=== PATIENT | female | born 1995 | race Caucasian/White ===

== ENCOUNTER → 2017-04-28 | Outpatient (REF) | payer BC ==
[~2017-04-28] MED LIST: MOTR200T44 PO; NORCOTAB PO; PREN27TA3 PO; PRENTAB40 PO; TYLE325T5 PO
== END ==
LOC: M WUC 07:28
PROVIDERS: ATTEND Physician Assistant
DX: J03.90 Acute tonsillitis, unspecified (principal)

== ENCOUNTER → 2018-02-06 | Outpatient (REF) | payer BC | LOC: M SFHCLERA 14:17 | DX: M53.3 Sacrococcygeal disorders, not elsewhere classified (principal) | CPT/HCPCS: 87086 ==

== ENCOUNTER → 2018-09-13 | Outpatient (REF) | payer BC ==
[2018-09-13 19:57] LABS: CHLAMYDIA DNA AMPLIFICATION NEGATIVE (NEGATIVE); GC DNA AMPLIFICATION NEGATIVE (NEGATIVE)
== END ==
LOC: M LAB REF 17:07
PROVIDERS: ATTEND Obstetrics & Gynecology
DX: Z12.4 Encounter for screening for malignant neoplasm of cervix (principal); Z11.3 Encounter for screening for infections with a predominantly sexual mode of transmission
CPT/HCPCS: 87661; G0123

== ENCOUNTER → 2018-09-30 | Outpatient (REF) | payer BC ==
[~2018-09-30] MED LIST changes: +HYDR-3715 PO; -NORCOTAB PO
== END ==
LOC: M SFHCLERA 11:45
PROVIDERS: ATTEND Nurse Practitioner Family
DX: R53.81 Other malaise (principal)

== ENCOUNTER → 2018-11-21 | Outpatient (CLI) | payer BC ==
[2018-11-21 13:25] LABS: BASO % 0.2 % (0.0-1.0); EOS # 0.1 10^3/uL (0.0-0.50); EOS % 0.9 % (0.0-3.0); HEMATOCRIT 41.2 % (36.0-47.0); LYMPH # 1.9 10^3/uL (1.5-6.5); LYMPH % 18.7 % (24.0-44.0); MEAN CORPUSCULAR HEMOGLOBIN 32.6 pg (27.0-33.0); MEAN CORPUSCULAR VOLUME 95.8 fl (80.0-96.0); MONO % 9.7 % (0.0-5.0); NEUTROPHILS # 6.9 10^3/uL (1.8-7.7); NEUTROPHILS % 70.2 % (36.0-66.0); PLATELET COUNT, AUTOMATED 302 10^3/uL (150-450); WHITE BLOOD COUNT 9.9 10^3/uL (4.0-10.0)
[2018-11-21 14:59] LABS: CHLAMYDIA DNA AMPLIFICATION NEGATIVE (NEGATIVE); GC DNA AMPLIFICATION NEGATIVE (NEGATIVE)
[2018-11-22 11:19] LABS: HIV 1&2 SCREEN CENTAUR NEGATIVE (NEGATIVE); RUBELLA IgG QUALITATIVE IMMUNE (IMMUNE)
== END ==
LOC: M WUC 09:15
PROVIDERS: ATTEND Obstetrics & Gynecology
DX: Z34.81 Encounter for supervision of other normal pregnancy, first trimester (principal); Z3A.00 Weeks of gestation of pregnancy not specified

== ENCOUNTER → 2018-12-11 | Outpatient (REF) | payer BC | LOC: M LAB REF 12:55 | PROVIDERS: ATTEND Obstetrics & Gynecology | DX: Z34.81 Encounter for supervision of other normal pregnancy, first trimester (principal) ==

== ENCOUNTER → 2019-01-31 | Outpatient (CLI) | payer BC ==
--- NOTE | 2019-01-31 14:56 | REP ---
OBSTETRIC SONOGRAPHY: HISTORY: Supervision of for anatomy. FINDINGS: Scanning through the gravid uterus demonstrates a viable single intrauterine gestation in a cephalic lie. motion is observed and heart rate is recorded at 147 beats per minute. An anterior grade 1 placenta is seen without evidence of previa or abruption. Amniotic fluid is subjectively normal. Closed cervical length is measured transabdominally at 3.3 cm. No extrauterine abnormality observed. The following anatomic structures are less than optimally seen today due to position: Face and profile, lungs, four-chamber heart and outflow tract views. The following additional anatomic structures are identified and felt to be unremarkable: cranium, choroid plexus, cavum, cerebellum and posterior fossa, diaphragm, left-sided stomach, abdominal wall cord insertion, three-vessel cord, kidneys and bladder, spine, upper and lower extremities. Biometry Chart: BPD 4.5 cm = 19 weeks 4 days HC 16.7 cm = 19 weeks 3 days AC 14.0 cm = 19 weeks 3 days FL 3.1 cm = 19 weeks 4 days HL 2.9 cm = 19 weeks 3 days HC/AC ratio normal 1.19. Cephalic index normal 0.74. Estimated weight 294 grams, 0 pounds 10 ounces, 49th percentile for 19 weeks 3 days. IMPRESSION: Viable single intrauterine gestation at 19 weeks 3 days by today's composite sonographic criteria. ALBIN by today's sonography June 24, 2019. No anomaly is seen. anatomic survey is incomplete regarding face, lungs, and heart. Electronically Signed by Jose Raul Tate MD 01/31/2019 03:24 P
== END ==
LOC: M RAD 12:25
PROVIDERS: ATTEND Obstetrics & Gynecology
DX: Z34.82 Encounter for supervision of other normal pregnancy, second trimester (principal)

== ENCOUNTER → 2019-02-18 | Outpatient (CLI) | payer BC ==
--- NOTE | 2019-02-18 11:34 | REP ---
OB ULTRASOUND: Real-time sonographic evaluation of the gravid uterus performed. There is a single living intrauterine gestation with an estimated gestational 22 weeks 0 days, EDC 06/24/2019. Today's measurements indicate appropriate growth. Biometry and Growth: BPD 49 mm = 28 weeks 6 days, 19th percentile HC 193 mm = 21 weeks 4 days, 37th percentile AC 166 mm = 21 weeks 4 days, 42nd percentile FL 39 mm = 22 weeks 3 days, 59th percentile HC/AC ratio 1.17 within normal range. Estimated weight 458 grams, 42nd percentile. SEEN/GROSSLY UNREMARKABLE Lateral ventricles Yes Posterior fossa Yes Upper lip Yes Four-chamber heart Yes LVOT Yes RVOT Yes Stomach Yes Cord insertion Yes Three vessel cord Yes Kidneys No Bladder Yes Spine No Cervical length: Closed and measures 3.4 cm in length. heart rate: 153 beats per minute. position: Vertex. Placenta: Anterior and grade 1 with previa or abruption. Amniotic fluid: Within normal limits. Electronically Signed by Geovanny Dickey MD 02/18/2019 11:44 A
== END ==
LOC: M RAD 10:34
PROVIDERS: ATTEND Obstetrics & Gynecology
DX: Z36.9 Encounter for antenatal screening, unspecified (principal); Z3A.22 22 weeks gestation of pregnancy

== ENCOUNTER → 2019-03-17 | Outpatient (CLI) | payer BC ==
--- NOTE | 2019-03-17 14:44 | REP ---
Obstetric ultrasound for anatomy: There is a single intrauterine gestation in a transverse lie, the head is to the maternal right. There is motion and cardiac activity. The heart rate is 176 beats minute. The placenta is anterior. There is no previa or abruptio. The placenta is grade zero. The amniotic fluid volume subjectively is normal. The cervix measures 6.6 cm length. Gestational age by today's ultrasound is 26 weeks 3 days/ALBIN 06/20/2019. Gestational age by the first ultrasound is 25 weeks 6 days/ALBIN 06/24/2019. Gestational age by LMP is 25 weeks 6 days/ALBIN 06/24/2019. weight is 883 grams/1 pound, 15 ounces. This is the 46th percentile for 25 weeks 6 days. The following anatomic structures are identified and are unremarkable: Cranium, choroid plexus, cavum septum pellucidum, cerebellum, facial profile, upper lip, face, lungs, four-chamber heart, cardiac right and left ventricular outflow tracts, diaphragm, stomach, cord insertion, three-vessel cord, bladder, and upper lower extremities. Suboptimally demonstrated because of position is the spine. A followup study dedicated to the spine might be considered. Electronically Signed by Geovanny Roa MD 03/17/2019 02:35 P
== END ==
LOC: M RAD 12:01
PROVIDERS: ATTEND Obstetrics & Gynecology
DX: Z34.82 Encounter for supervision of other normal pregnancy, second trimester (principal); Z3A.36 36 weeks gestation of pregnancy

== ENCOUNTER → 2019-03-18 | Outpatient (CLI) | payer BC ==
[2019-03-18 09:05] LABS: HEMATOCRIT 35.9 % (36.0-47.0); HEMOGLOBIN 12.1 g/dl (12.0-15.5); MEAN CORPUSCULAR HEMOGLOBIN 32.8 pg (27.0-33.0); MEAN CORPUSCULAR HGB CONC 33.7 g/dl (32.0-36.5); MEAN CORPUSCULAR VOLUME 97.3 fl (80.0-96.0); PLATELET COUNT, AUTOMATED 258 10^3/uL (150-450); RED BLOOD COUNT 3.69 10^6/uL (4.00-5.40)
== END ==
LOC: M LAB 07:56
PROVIDERS: ATTEND Obstetrics & Gynecology
DX: Z34.82 Encounter for supervision of other normal pregnancy, second trimester (principal)

== ENCOUNTER → 2019-05-28 | Outpatient (REF) | payer BC | LOC: M SFHCWAGY 17:32 | PROVIDERS: ATTEND Obstetrics & Gynecology | DX: Z34.80 Encounter for supervision of other normal pregnancy, unspecified trimester (principal) ==

== ENCOUNTER 2019-06-16 11:08 | Inpatient (IN) | payer BC ==
[2019-06-16] VITALS (16 sets, daily range): BP systolic 113–147; BP diastolic 62–95
[~2019-06-16] VITALS: Ht 154.9 cm; Wt 98.0 kg
[2019-06-16] MEDS ORDERED: TUMS500C PO (11:38)
[2019-06-16] MEDS ORDERED: ACET1TAB55 PO (11:38)
[2019-06-16] MEDS ORDERED: CHILCHW10 PO (11:38)
[2019-06-16 12:47] LABS: HEMATOCRIT 32.9 % (36.0-47.0); HEMOGLOBIN 10.7 g/dl (12.0-15.5); MEAN CORPUSCULAR HEMOGLOBIN 30.8 pg (27.0-33.0); MEAN CORPUSCULAR HGB CONC 32.5 g/dl (32.0-36.5); MEAN CORPUSCULAR VOLUME 94.8 fl (80.0-96.0); PLATELET COUNT, AUTOMATED 226 10^3/uL (150-450); RED BLOOD COUNT 3.47 10^6/uL (4.00-5.40)
[2019-06-16 13:19] LABS: ALT/SGPT 10 U/L (12-78); BILIRUBIN,TOTAL 0.2 MG/DL (0.2-1.0); CREATININE FOR GFR 0.58 MG/DL (0.55-1.30); GLOMERULAR FILTRATION RATE > 60.0 (>60); LDH LACTATE DEHYDROGENASE 240 U/L (84-246); URIC ACID 4.3 MG/DL (2.6-6.0)
[2019-06-16] MEDS ORDERED: PENICILLIN G POTASSIUM IV 5 MU in D5W MINI-BAG PLUS 100 ML IV STA (13:47)
[2019-06-16] MEDS ORDERED: miSOPROStol 50 MCG 1/2 TAB (S0191) PO ONE (14:00)
--- NOTE | 2019-06-16 14:33 | HPEPDOC ---
Obstetrical History & Physical General Date of Admission Jun 16, 2019 at 11:08 Primary Care Physician: LACY PASCUAL CNM History of Present Illness Patient is a 23-year-old female who is a at 38.6 weeks gestation with an ALBIN of 06/24/19 based off of her LMP and consistent with her first trimester ultrasound. She initiated care in her first trimester. Her has been uncomplicated up until this point. She presented to a routine OB appointment today and was found to have a severe range pressure with a slight headache. Patient reports her headache is no longer occurring. She was sent over to L&D by Dr. Riley for IOL due to severe range BP and symptoms of headache. She denies contractions, leaking of fluid, or vaginal bleeding. She reports active movement. Chief Complaint: Gestational Hypertension Information Provided By: Patient Age: 23 : 4 Term: 2 Pre-term: 0 Abortions: 1 Livin Care Care: Good Care Dating Final EDC: Jun 24, 2019 Final EDC by: LMP EGA at Admission: 38.6 Antepartum Course Diagnos(e)s Gestational hypertension Height (inches): 61 Pre- weight (lbs.): 187 Admission Weight (lbs.): 215 Change in Weight (lbs.): 28 Past Medical History Past Obstetrical History #1: Gestation: 38 Type of Delivery: Spontaneous Vaginal Del. (November 2013) Sex of Infant: Male (6 lbs 3 oz) Complications: No Past Obstetrical History #2: Past Obstetrical History: Multigravida Gestation: 39.2 Type of Delivery: Spontaneous Vaginal Del. 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 Past Medical History Medical History born with hip dysplasia Surgical History: Gallbladder Family History Significant Family History: Diabetes, Hypertension Social History Marital Status: Family situation: Spouse/partner home * Smoker: non-smoker Alcohol: Denies Drugs: denies Imunizations Influenza Status: current Allergies Coded Allergies: No Known Drug Allergies (Verified Allergy, Unknown, 06/16/19) Medications Scheduled Calcium Carbonate (Tums) 200 Mg Tab.chew, 1 TAB PO QHS Pedi Multivit No.19/Folic Acid (Children's Multi-Vit Gummies) 200 Mcg Tab.chew, 2 CHW PO DAILY Scheduled PRN Acetaminophen (Acetaminophen) 325 Mg Tablet, 1-2 TABS PO Q4-6HP PRN for pain or fever Physical Examination Physical Examination GENERAL: Alert and oriented times three. BREAST: . ABDOMEN: Gravid and non-tender to touch. FETUS: Is vertex (VTX) by sterile vaginal examination (SVE), fetus is vertex (VTX) by Andrey. HEART RATE: Regular rate and rhythm. LUNGS: Clear to auscultation (CTA). EXTREMITIES: No edema. No clonus. Deep tendon reflexes (DTRs) + 1. Vital Signs/I&O Vital Signs Date Time Temp Pulse Resp B/P (MAP) Pulse Ox O2 Delivery O2 Flow Rate FiO2 06/16/19 13:01 81 20 113/62 (79) 06/16/19 11:31 97.6 98 Room Air Laboratory Data 24H LABS Laboratory Tests 2 06/16/19 11:27: Serology Scanned Report Hepatitis B Testing 06/16/19 12:36: Nucleated Red Blood Cells % (auto) 0.0, Glomerular Filtration Rate > 60.0, Uric Acid 4.3, Total Bilirubin 0.2, Aspartate Amino Transf (AST/SGOT) 23, Alanine Aminotransferase (ALT/SGPT) 10L, Lactate Dehydrogenase 240, Syphilis Serology NONREACTIVE CBC/BMP Laboratory Tests 06/16/19 12:36 Urine Culture: No Growth Pertinent Laboratoy Data Blood Type: O+ RBC Antibody Screen: Negative HIV: Negative Hepatitis B: Negative Hepatitis C: Negative Rapid Plasma Reagin: Nonreactive Rubella: Immune Chlamydia/Gonorrhea: Negative Group B Streptococcus: Positive Diag/Inter Therapy Normal 3 hour GTT Anatomy Ultrasound Ultrasound Date: Mar 17, 2019 Placenta Location: Anterior Normal Anatomy: Yes (spine suboptimally seen) Placenta Previa: No Vaginal Examination Dilation: 1cm Effacement: other (75%) Station: -2 Cervical Consistency: Medium Cervical Position: Anterior Presentation: Cephalic presentation Position: Vertex (occiput) Assessment Heart Rate (FHR): 130 Variability: Moderate Accelerations: Positive Decelerations: None Tocometer Contractions: Yes Frequency: irregular Assessment/Plan Assessment IUP at 38.6 weeks gestation severe range BP without diagnosis of preeclampsia GHTN Category I FHR tracing. GBS positive Plan Admit to L&D for IOL per Dr. Riley. OOB ad garrett. Diet: regular until IV Pitocin then clear liquid diet. Group B Streptococcus (GBS) positive. Start antibiotic prophylaxis per order. Labs and intravenous (IV) per unit protocol. Preeclamptic labs ordered. Counseled on Cytotec and Pitocin for induction of labor (IOL). Anesthesia consult per patient's request. Anticipate cervical ripening. LACY PASCUAL CNM Jun 16, 2019 14:33
[2019-06-16] MEDS ORDERED: OXYTOCIN DRIP 30 UNITS in IV 1 EA IV SCH (18:00)
[2019-06-16] MEDS ORDERED: PROMETHAZINE INJ 25 MG/ML VIAL (J2550) IV ONE (18:00)
--- NOTE | 2019-06-16 18:04 | IPNPDOC ---
Obstetrical Progress Note Date of Service Jun 16, 2019 Subjective Patient reports she is feeling contractions and reports they are uncomfortable. Objective Vital Signs Date Time Temp Pulse Resp B/P (MAP) Pulse Ox O2 Delivery O2 Flow Rate FiO2 06/16/19 16:18 90 20 122/71 (88) 06/16/19 14:20 97.7 98 Room Air Assessment Heart Rate (FHR): 130 Variability: Moderate Accelerations: Positive Decelerations: None Heart Rate Tracing: Category I Tocometer Contractions: Yes Frequency: regular Sterile Vaginal Examination Dilation: 1cm Effacement (%): 80% Station: -2 Cervical Consistency: Medium Cervical Position: Anterior Postion/Presentation: Cephalic presentation Assessment and Plan Age: 23 : 4 Term: 2 Pre-term: 0 Abortions: 1 Livin EGA at Admission: 38.6 Status: Reassuring Group B Streptococcus: Positive Anticipate: Vaginal Delivery Additional Comments Petersen bulb inserted with 60/40. Patient tolerated well. IV Pitocin ordered and to be started. Considering IV pain medication prior to getting epidural. Orders placed if patient desires IV medications. LACY PASCUAL CNM Jun 16, 2019 18:04
[2019-06-16] MEDS: LR 1,000 ML IV SCH (18:17)
[2019-06-16] MEDS: PENICILLIN G POTASSIUM IV 2.5 MU in IV 1 EA IV SCH ×2 (18:17→22:41)
[2019-06-16] MEDS ORDERED: BUTORPHANOL 2 MG/ML INJ (J0595) IV ONE (19:00)
[2019-06-16] MEDS ORDERED: FENTANYL 2MCG/ML ROPIVACAINE 0.2% IN 0.9% NACL 100ML IVBAG As Ordered ONE (23:21)
--- NOTE | 2019-06-16 23:24 | IPNPDOC ---
Obstetrical Progress Note Date of Service Jun 16, 2019 Subjective Patient reports she is feeling her contractions again. Objective Vital Signs Date Time Temp Pulse Resp B/P (MAP) Pulse Ox O2 Delivery O2 Flow Rate FiO2 06/16/19 20:48 20 06/16/19 19:43 94 Room Air 06/16/19 19:33 82 06/16/19 19:31 138/81 (100) 06/16/19 14:20 97.7 Assessment Heart Rate (FHR): 125 Variability: Moderate Accelerations: Positive Decelerations: None Heart Rate Tracing: Category I Tocometer Contractions: Yes Frequency: irregular Sterile Vaginal Examination Dilation: 4 cm Effacement (%): 80% Station: -2 Cervical Consistency: Soft Cervical Position: Anterior Postion/Presentation: Cephalic presentation Assessment and Plan Age: 23 : 4 Term: 2 Pre-term: 0 Abortions: 1 Livin EGA at Admission: 38.6 Status: Reassuring Group B Streptococcus: Positive Anticipate: Vaginal Delivery Additional Comments IV Pitocin has not been started up to this point due to census on the floor. Will be started. Patient desires an epidural. Anesthesia notified. LACY PASCUAL CNM Jun 16, 2019 23:24
[2019-06-17] VITALS (73 sets, daily range): BP systolic 108–171; BP diastolic 59–110
[2019-06-17] MEDS ORDERED: LACTATED RINGER'S 1000 ML IV PRN (01:15)
[2019-06-17] MEDS ORDERED: diphenhydrAMINE INJ 50MG/ML VIAL (J1200) IV PRN (01:15)
[2019-06-17] MEDS ORDERED: EPIDURAL/PCA KEYS XX PRN (01:15)
[2019-06-17] MEDS ORDERED: REFRIGERATOR IV KEYS XX PRN (01:15)
[2019-06-17] MEDS: FENTANYL/ROPIVACAINE/NACL BAG 100 ML EPIDURAL SCH ×2 (01:15→10:00)
[2019-06-17] MEDS ORDERED: NALOXONE INJ 0.4 MG/1 ML VIAL (J2310) IV PRN (01:15)
[2019-06-17] MEDS ORDERED: EPIDURAL COMMENT XX SCH (01:15)
[2019-06-17] MEDS ORDERED: ONDANSETRON 4MG/2ML VIAL (J2405) IV PRN ×2 (01:15→12:00)
[2019-06-17] MEDS ORDERED: ePHEDrine SULFATE 25 MG/5 ML(5MG/ML) SYRINGE IV PRN (01:15)
[2019-06-17] MEDS: PENICILLIN G POTASSIUM IV 2.5 MU in IV 1 EA IV SCH ×3 (01:53→10:06)
[2019-06-17] MEDS: LR 1,000 ML IV SCH ×2 (01:53→07:23)
[2019-06-17] MEDS ORDERED: ACETAMINOPHEN TAB 650MG DOSE (2X325MG) PO PRN (12:00)
[2019-06-17] MEDS ORDERED: DIBUCAINE 1% OINTMENT 30GM TOP PRN (12:00)
[2019-06-17] MEDS ORDERED: IBUPROFEN 600 MG TAB PO PRN (12:00)
[2019-06-17] MEDS ORDERED: DOCUSATE SODIUM 100 MG CAP PO PRN (12:00)
[2019-06-17] MEDS ORDERED: PROMETHAZINE 25 MG TAB PO PRN (12:00)
[2019-06-17] MEDS ORDERED: OXYTOCIN DRIP 30 UNITS in IV 1 EA IV SCH (13:00)
[2019-06-17] MEDS ORDERED: RHOGAM 300 MCG (1500 IU) INJ (J2790) IM SCH (13:00)
[2019-06-17] MEDS ORDERED: MEASLES,MUMPS,RUBELLA VACCINE INJ (MMR-II) (90707) SC SCH (13:00)
[2019-06-17] MEDS ORDERED: LR 1,000 ML IV SCH (13:00)
[2019-06-17] MEDS: IBUPROFEN 800 MG TAB PO PRN ×2 (13:59→22:30)
[2019-06-17] MEDS: SLF 3 ML SYR IV SCH ×2 (14:00→22:00)
[2019-06-17] MEDS ORDERED: SLF 3 ML SYR IV PRN (15:00)
[2019-06-17] MEDS: ACETAMINOPHEN 500 MG TAB PO PRN (18:19)
[2019-06-18] MEDS: ACETAMINOPHEN 500 MG TAB PO PRN ×3 (01:07→19:14)
[2019-06-18] MEDS: SLF 3 ML SYR IV SCH ×3 (05:10→22:00)
[2019-06-18 06:00] VITALS: BP 127/83
--- NOTE | 2019-06-18 07:13 | IPNPDOC ---
Text Note Date of Service The patient was seen on 06/18/19. NOTE Day 1 S/p vaginal delivery; uncomplicated S:Patient is a 23-year-old female who is day 1 status post vaginal delivery. Patient's pain is well-controlled. She reports minimal cramping. She is tolerating by mouth intake. She is ambulating without difficulty. Patient is using the bathroom without difficulty. Patient denies any shortness of breath or leg swelling. Patient is reporting minimal bleeding. O: vitals: See below Gen.: Alert and oriented female who was laying in bed when I walked in. Patient was in no acute distress. Abd: Uterine fundus 2 cm below the umbilicus and firm Ext: Nonedematous bilaterally A/P: 23 yo G 4 now P 3013. day 1 status post vaginal delivery Hemodynamically stable, afebrile, good pain control. Recovering well. -Routine care and advancement. -Anticipate discharge tomorrow VS,Fishbone, I+O VS, Fishbone, I+O Vital Signs Date Time Temp Pulse Resp B/P (MAP) Pulse Ox O2 Delivery O2 Flow Rate FiO2 06/18/19 06:00 97.5 79 18 127/83 (98) 06/17/19 17:59 Room Air 06/17/19 12:02 99 I&O- Last 24 Hours up to 6 AM 06/18/19 06:00 Intake Total 2340.0 ml Output Total 2500 ml Balance -160.0 ml GME ATTESTATION GME ATTESTATION My faculty preceptor for this patient encounter was physically present during the encounter and was fully available. All aspects of the patient interview, examination, medical decision making process, and medical care plan development were reviewed and approved by the faculty preceptor. The faculty preceptor is aware and concurs with the plan as stated in the body of this note and will attest to such by his/her cosignature. GRIFFIN TANG DO Jun 18, 2019 07:13
[2019-06-18] MEDS: PRENATAL VITAMINS CHEWABLE TABLET PO SCH (07:56)
[2019-06-18] MEDS: IBUPROFEN 800 MG TAB PO PRN ×2 (13:25→22:30)
[2019-06-18 18:00] VITALS: BP 118/72
[2019-06-19 06:00] VITALS: BP 128/77
[2019-06-19] MEDS: SLF 3 ML SYR IV SCH (06:00)
[2019-06-19] MEDS: IBUPROFEN 800 MG TAB PO PRN (07:18)
[2019-06-19] MEDS: PRENATAL VITAMINS CHEWABLE TABLET PO SCH (07:18)
== END 2019-06-19 11:20 | disposition home or self-care (01) | DRG 560 ==
LOC: M LDI 11:08 → M OBS 06-17 14:24
PROVIDERS: ADMIT Advanced Practice Midwife; ATTEND Advanced Practice Midwife
PROC: 3E033VJ Introduction of Other Hormone into Peripheral Vein, Percutaneous Approach (ICD-10-PCS; 2019-06-16)
PROC: 10E0XZZ Delivery of Products of Conception, External Approach (ICD-10-PCS; principal; 2019-06-17)
DX: O14.14 Severe pre-eclampsia complicating childbirth (principal); O99.824 Streptococcus B carrier state complicating childbirth; Z37.0 Single live birth; Z3A.38 38 weeks gestation of pregnancy; O69.81X0 Labor and delivery complicated by cord around neck, without compression, not applicable or unspecified

== ENCOUNTER 2021-03-07 18:31 | Emergency (ER) | payer BC ==
[~2021-03-07] VITALS: Ht 152.4 cm; Wt 91.9 kg
[2021-03-07 18:31] VITALS: BP 138/83
[~2021-03-07 18:31] MED LIST changes: +ACET1TAB55 PO; +CHILCHW10 PO; +TUMS500C PO
[2021-03-07] MEDS ORDERED: FLUO20CA22 (21:41)
[2021-03-07] MEDS ORDERED: LIDOCAINE 2% MDV 20ML VIAL SC ONE (21:50)
== END 2021-03-07 23:49 | disposition home or self-care (01) ==
LOC: M ED 18:31
DX: S61.211A Laceration without foreign body of left index finger without damage to nail, initial encounter (principal); W27.4XXA Contact with kitchen utensil, initial encounter; Y92.000 Kitchen of unspecified non-institutional (private) residence as the place of occurrence of the external cause; Y93.G1 Activity, food preparation and clean up; Y99.9 Unspecified external cause status

== ENCOUNTER 2023-02-11 17:00 | Emergency (ER) | payer BC ==
[~2023-02-11] VITALS: Ht 152.4 cm; Wt 96.5 kg
[~2023-02-11 17:00] MED LIST changes: +FLUO20CA22
[2023-02-11 20:30] LABS: BASO % 0.2 % (0.0-1.0); EOS # 0.1 10^3/uL (0.0-0.5); EOS % 0.5 % (0.0-3.0); HEMATOCRIT 42.1 % (36.0-47.0); HEMOGLOBIN 14.7 g/dl (12.0-15.5); MEAN CORPUSCULAR HEMOGLOBIN 32.1 pg (27.0-33.0); MEAN CORPUSCULAR HGB CONC 34.9 g/dl (32.0-36.5); MEAN CORPUSCULAR VOLUME 91.9 fl (80.0-96.0); MONO # 0.8 10^3/uL (0.0-0.8); MONO % 6.1 % (2.0-8.0); NEUTROPHILS # 9.4 10^3/uL (1.5-8.5); PLATELET COUNT, AUTOMATED 352 10^3/uL (150-450); RED BLOOD COUNT 4.58 10^6/uL (4.00-5.40); WHITE BLOOD COUNT 12.2 10^3/uL (4.0-10.0)
[2023-02-11] MEDS ORDERED: MECLIZINE 25 MG TABLET PO ONE (20:45)
[2023-02-11] MEDS ORDERED: ACETAMINOPHEN 500 MG TAB PO ONE (20:45)
[2023-02-11] MEDS ORDERED: METOCLOPRAMIDE INJ 10MG/2ML VIAL IV ONE (21:00)
[2023-02-11 21:21] LABS: CK-MB VALUE MASS 2.2 NG/ML (<3.6)
[2023-02-11 21:25] LABS: CPK CREATINE PHOSPHOKINASE 126 U/L (34-145); MB/CK RELATIVE INDEX 1.74 (< OR =4)
[2023-02-11] MEDS ORDERED: dexAMETHasone 20MG/5ML VIAL IV ONE (23:30)
[2023-02-11] MEDS ORDERED: diphenhydrAMINE 50MG/ML VIAL IV ONE (23:30)
[2023-02-12] MEDS ORDERED: MECL1TAB31 PO (00:55)
[2023-02-12 01:04] VITALS: BP 137/91; TEMP 98.4; O2SAT 100
== END 2023-02-12 01:07 | disposition home or self-care (01) ==
LOC: M ED 17:00
DX: R42 Dizziness and giddiness (principal); R51.9 Headache, unspecified; R20.2 Paresthesia of skin; F10.10 Alcohol abuse, uncomplicated; Z79.810 Long term (current) use of selective estrogen receptor modulators (SERMs); Z79.899 Other long term (current) drug therapy
CPT/HCPCS: 70450; 70544; 70547; 70551; 80047; 82550; 82553; 84484; 85025; 93005; 96374; 96375; 99284; J1100; J1200; J2765

== ENCOUNTER → 2024-09-04 | Outpatient (REF) | payer BC ==
[~2024-09-04] MED LIST changes: +FLUO-365; -FLUO20CA22; +MECL-209 PO
[2024-09-08 13:44] LABS: HPV APTIMA Not Detected (Not Detected)
== END ==
LOC: M SFHCWAGY 15:21
PROVIDERS: ATTEND Obstetrics & Gynecology
DX: Z12.4 Encounter for screening for malignant neoplasm of cervix (principal)
CPT/HCPCS: 87624; G0123